=== PATIENT | male | born 1965 | race Two or more races ===

== ENCOUNTER 2023-11-30 23:47 | Inpatient (IN) | payer MEDICAID, OTHER ==
[~2023-11-30] VITALS: Ht 167.6 cm; Wt 106.4 kg
[2023-12-01] VITALS (7 sets, daily range): BP systolic 109–147; BP diastolic 68–84; PULSE 54–89; RESP 18–20; TEMP 98.2–98.5; O2SAT 93–100
[2023-12-01 00:09] LABS: Basophils # (auto) 0.1 10 ^3/uL (0-0.2); Basophils % (auto) 0.8 % (0.0-2.0); Eosinophils # (auto) 0.2 10 ^3/uL (0-0.8); Eosinophils % (auto) 2.5 % (0.0-7.0); Hematocrit 45.4 % (41.0-53.0); Hemoglobin 15.6 g/dL (13.5-17.5); Lymphocytes # (auto) 2.8 10 ^3/uL (0.4-5.4); Lymphocytes % (auto) 39.3 % (10.0-50.0); Mean Corpuscular Hemoglobin 29.8 pg (28.0-32.0); Mean Corpuscular Hgb Conc. 34.3 g/dL (32.0-36.0); Monocytes # (auto) 0.6 10 ^3/uL (0-1.3); Monocytes % (auto) 8.6 % (0.0-12.0); Neutrophils # (auto) 3.5 10 ^3/uL (1.6-8.6); Neutrophils % (auto) 48.8 % (37.0-80.0); Platelet Count (auto) 201 10^3/uL (140-450); Red Blood Cells 5.22 10^6/uL (4.5-5.90); Red Cell Distribution Width 14.2 % (11.8-14.3); White Blood Cell 7.1 10^3/uL (4.4-10.8)
[2023-12-01 00:27] LABS: Alanine Aminotransferase 45 U/L (7-40); Albumin 4.3 g/dL (3.2-4.8); Alkaline Phosphatase 82 U/L (46-116); Anion Gap 6 (5-15); Aspartate Aminotransferase 26 U/L (13-40); Bilirubin, Total 0.8 mg/dL (0.2-1.0); Blood Urea Nitrogen 10 mg/dL (9-23); Calcium 8.9 mg/dL (8.7-10.4); Carbon Dioxide 23 mmol/L (20-30); Chloride 108 mmol/L (98-107); Glucose 111 mg/dL (74-106); Potassium 3.9 mmol/L (3.5-5.1); Sodium 137 mmol/L (136-145); Total Protein 7.3 g/dL (5.7-8.2)
[2023-12-01 02:36] LABS: Urine Bacteria None Seen /hpf (None Seen)
[2023-12-01 02:44] LABS: Urine Blood Negative /uL (Negative); Urine Clarity Clear (Clear); Urine Color Light-Yellow (Yellow); Urine Protein, UAD Negative (Negative); Urine Specific Gravity 1.014 (1.001-1.035); Urine Urobilinogen Normal (Negative); Urine WBC <1 /hpf (0 - 3); Urine pH 5.5 (5.0-9.0)
[2023-12-01] MEDS ORDERED: DOCUSATE SOD 100 MG CAP PO PRN (03:00)
[2023-12-01] MEDS: NITROGLYCERIN 2% OINT 1GM PKG TD ONE (03:00)
[2023-12-01] MEDS ORDERED: ONDANSETRON HCL 4 MG/2 ML VIAL IV PRN (03:00)
[2023-12-01] MEDS: ACETAMINOPHEN 500 MG TAB PO ONE (03:15)
[2023-12-01] MEDS: ASPirin 325 MG TAB PO ONE (03:16)
[2023-12-01] MEDS ORDERED: NITROGLYCERIN 0.4 MG SL TAB SL PRN (04:45)
[2023-12-01] MEDS ORDERED: MORPHINE SULFATE INJ 2 MG/ml SYRG IV PRN (04:45)
[2023-12-01] MEDS: SODIUM CHLOR 0.9% PF (SALINE LOCK) 10ML VIAL/SYR IV SCH (06:02)
[2023-12-01] MEDS: ASPirin 81 mg TAB PO SCH (08:57)
[2023-12-01] MEDS: ACETAMINOPHEN 325 MG TAB PO PRN (08:57)
[2023-12-01] MEDS: HYDROcodone-ACET 5/325MG TAB PO PRN (20:49)
[2023-12-01] MEDS: ATORVASTATIN 20 MG TAB PO SCH (22:00)
[2023-12-02] VITALS (11 sets, daily range): BP systolic 121–138; BP diastolic 69–88; PULSE 53–74; RESP 18–20; TEMP 97.7–98.7; O2SAT 92–100
[2023-12-02 07:28] LABS: Basophils # (auto) 0 10 ^3/uL (0-0.2); Basophils % (auto) 0.6 % (0.0-2.0); Eosinophils # (auto) 0.2 10 ^3/uL (0-0.8); Eosinophils % (auto) 3.2 % (0.0-7.0); Hematocrit 45.4 % (41.0-53.0); Hemoglobin 15.7 g/dL (13.5-17.5); Lymphocytes # (auto) 2.8 10 ^3/uL (0.4-5.4); Lymphocytes % (auto) 42.3 % (10.0-50.0); Mean Corpuscular Hgb Conc. 34.7 g/dL (32.0-36.0); Mean Corpuscular Volume 86.7 fL (80.0-100.0); Monocytes # (auto) 0.6 10 ^3/uL (0-1.3); Monocytes % (auto) 8.7 % (0.0-12.0); Neutrophils % (auto) 45.2 % (37.0-80.0); Nucleated Red Blood Cells % 0.1 %; Platelet Count (auto) 189 10^3/uL (140-450); Red Blood Cells 5.23 10^6/uL (4.5-5.90); Red Cell Distribution Width 14.2 % (11.8-14.3); White Blood Cell 6.6 10^3/uL (4.4-10.8)
[2023-12-02 07:51] LABS: Alanine Aminotransferase 47 U/L (7-40); Albumin 4.3 g/dL (3.2-4.8); Anion Gap 6 (5-15); Aspartate Aminotransferase 32 U/L (13-40); BUN/Creatinine Ratio 17.3 (10.0-20.0); Blood Urea Nitrogen 14 mg/dL (9-23); Calcium 8.8 mg/dL (8.7-10.4); Carbon Dioxide 24 mmol/L (20-30); Chloride 107 mmol/L (98-107); Glucose 109 mg/dL (74-106); Potassium 4.3 mmol/L (3.5-5.1); Sodium 137 mmol/L (136-145)
[2023-12-02 08:00] LABS: Alkaline Phosphatase 68 U/L (46-116)
[2023-12-02] MEDS: MORPHINE SULFATE INJ 2 MG/ml SYRG IV PRN (20:57)
[2023-12-03] VITALS (9 sets, daily range): BP systolic 117–146; BP diastolic 67–87; PULSE 60–75; RESP 16–18; TEMP 97.7–98.3; O2SAT 93–96
[2023-12-03 13:42] LABS: Anion Gap 6 (5-15); Carbon Dioxide 24 mmol/L (20-30); Chloride 106 mmol/L (98-107); Sodium 136 mmol/L (136-145)
[2023-12-03 13:43] LABS: Calcium 9.3 mg/dL (8.7-10.4)
[2023-12-03 13:47] LABS: Glucose 117 mg/dL (74-106)
[2023-12-03 13:48] LABS: Blood Urea Nitrogen 10 mg/dL (9-23); LDL Cholesterol 80 mg/dL (< 100); Magnesium 2.1 mg/dL (1.6-2.6); Triglycerides 242 mg/dL (< 150)
[2023-12-03 13:49] LABS: CRP High Sensitivity 0.31 mg/dL (<1.0)
[2023-12-03 13:50] LABS: Cholesterol 136 mg/dL (< 200); HDL Cholesterol 34 mg/dL (40-59)
[2023-12-04 01:00] VITALS: BP 115/74; PULSE 63; RESP 20; TEMP 98; O2SAT 94
[2023-12-04 05:00] VITALS: BP 117/65; PULSE 68; RESP 20; TEMP 97.9; O2SAT 94
[2023-12-04] MEDS: GEMFIBROZIL 600 MG TAB PO SCH (06:09)
[2023-12-04 08:00] VITALS: PULSE 60
[2023-12-04 09:00] VITALS: BP 123/52; PULSE 58; RESP 16; TEMP 97.9; O2SAT 94
[2023-12-04] MEDS: ADENOSINE 89 MG in GIVE UN-DILUTED 0 ML IV STA (11:33)
[2023-12-04 17:03] VITALS: BP 123/62; PULSE 64; RESP 19; TEMP 97.7; O2SAT 95
== END 2023-12-04 19:02 | disposition home or self-care (01) | DRG 194 ==
LOC: ER 23:47 → TELE 12-01 04:41 → TELE-WESTW 12-01 08:05
PROVIDERS: ADMIT Nurse Practitioner Family; ATTEND Nurse Practitioner Acute Care
DX: I11.0 Hypertensive heart disease with heart failure (principal); E66.01 Morbid (severe) obesity due to excess calories; I50.31 Acute diastolic (congestive) heart failure; E78.1 Pure hyperglyceridemia; I45.10 Unspecified right bundle-branch block; E78.5 Hyperlipidemia, unspecified; K21.9 Gastro-esophageal reflux disease without esophagitis; Z90.49 Acquired absence of other specified parts of digestive tract; Z68.37 Body mass index [BMI] 37.0-37.9, adult
CPT/HCPCS: 36415; 78452; 80048; 80053; 80061; 81001; 83036; 83735; 84443; 84484; 85025; 86141; 93005; 93017; 93306; G0378; J0153